=== PATIENT | female | born 1955 | race Caucasian/White ===

== ENCOUNTER 2024-02-06 09:45 | Inpatient (IN) | payer OTHER ==
[2024-02-06 10:33] VITALS: BMI 28.3
[2024-02-06 11:08] LABS: BASO % 0.6 % (0-2.0); EOS % 3.4 % (0-4.5); HEMATOCRIT 21.8 % (32.4-45.2); HEMOGLOBIN 7.3 GM/dL (10.7-15.3); LYMPH % 12.6 % (8-40); MCH 31.6 pg (25.7-33.7); MCHC 33.7 g/dl (32.0-36.0); MEAN CELL VOLUME 93.7 fl (80-96); MEAN PLT VOLUME 7.5 fl (7.5-11.1); MONO % 10.5 % (3.8-10.2); NEUT % 72.9 % (42.8-82.8); PLATELET COUNT 72 10^3/uL (134-434); RBC 2.32 M/mm3 (3.60-5.2); WHITE BLOOD COUNT 2.5 K/mm3 (4.0-10.0)
[2024-02-06 11:14] LABS: INR 1.13 (0.83-1.09)
[2024-02-06 11:28] LABS: ANISOCYTOSIS 1+; MACROCYTOSIS 1+
[2024-02-06 11:42] LABS: PH,URINE 5.5 (5.0-8.0); URINE APPEARANCE CLEAR; URINE BILIRUBIN NEGATIVE (NEGATIVE); URINE COLOR DK YELLOW; URINE GLUCOSE (UA) NEGATIVE (NEGATIVE); URINE KETONE TRACE (NEGATIVE); URINE LEUK ESTERASE TRACE (NEGATIVE); URINE NITRITE NEGATIVE (NEGATIVE); URINE PROTEIN 3+ (NEGATIVE); URINE RBC 1207.9 /uL (0-23.9); URINE UROBILINOGEN 0.2 mg/dL (0.2-1.0)
[2024-02-06 11:43] LABS: EPI CELLS 9.6 /uL (0-25.1); HYALINE CASTS 1.02 /uL (0-3.1); URINE BACTERIA 3.7 /uL (0-1359); URINE WBC 44.5 /uL (0-25.8)
[2024-02-06 11:54] LABS: LACTIC ACID 2.4 mmol/L (0.4-2.0)
[2024-02-06 13:30] LABS: POTASSIUM 3.9 mmol/L (3.5-5.1)
[2024-02-06 13:34] LABS: ALBUMIN 2.9 g/dl (3.4-5.0)
[2024-02-06 13:37] LABS: CREATININE 5.1 mg/dL (0.55-1.3)
[2024-02-06 13:38] LABS: BILIRUBIN,TOTAL 0.5 mg/dL (0.2-1); TOT PROT 5.9 g/dl (6.4-8.2)
[2024-02-06] MEDS ORDERED: LACTULOSE 20 GM/30 ML UDC (FOR ORAL USE ONLY) ONE (15:23)
[2024-02-06] MEDS: LACTULOSE 20 GM/30 ML UDC (FOR ORAL USE ONLY) PO ONE (15:38)
[2024-02-06 15:45] LABS: BF WBC & OTHER NUCLEATED CELLS 85 /mm3; BODY FLUID MACROPHAGES 62 %; BODY FLUID MESOTHELIAL 2 %
[2024-02-06] MEDS ORDERED: LACTULOSE 20 GM/30 ML UDC (FOR ORAL USE ONLY) PO PRN (18:15)
[2024-02-06] MEDS: BUDESONIDE/FORMETEROL FUMARATE 160/4.5 mcg INHALER IH SCH (22:11)
[2024-02-06] MEDS: OCTREOTIDE ACETATE 100 MCG/1 ML SQ SCH (22:12)
[2024-02-06] MEDS: RIFAXIMIN 550 MG TABLET PO SCH (22:47)
[2024-02-07] MEDS: ACETAMINOPHEN 500 MG TABLET (FP) PO ONE (04:47)
[2024-02-07] MEDS: LEVOTHYROXINE NA 100 MCG TABLET (FP) PO SCH (06:48)
[2024-02-07] MEDS: ACETAMINOPHEN 1000 MG/100 ML BAG IVPB ONE (06:52)
[2024-02-07 09:03] LABS: BASO % 0.6 % (0-2.0); EOS % 4.1 % (0-4.5); HEMATOCRIT 20.6 % (32.4-45.2); LYMPH % 14.9 % (8-40); MCH 31.2 pg (25.7-33.7); MCHC 32.9 g/dl (32.0-36.0); MEAN CELL VOLUME 94.9 fl (80-96); MEAN PLT VOLUME 7.9 fl (7.5-11.1); MONO % 10.6 % (3.8-10.2); NEUT % 69.8 % (42.8-82.8); PLATELET COUNT 73 10^3/uL (134-434); RBC 2.17 M/mm3 (3.60-5.2); RDW 24.2 % (11.6-15.6); WHITE BLOOD COUNT 2.4 K/mm3 (4.0-10.0)
[2024-02-07 09:20] LABS: CALCIUM 8.2 mg/dL (8.5-10.1)
[2024-02-07 09:21] LABS: ALBUMIN 2.7 g/dl (3.4-5.0); BLOOD UREA NITROGEN 46.6 mg/dL (7-18); HEMOGLOBIN 6.8 GM/dL (10.7-15.3); MAGNESIUM 2.4 mg/dL (1.8-2.4)
[2024-02-07 09:22] LABS: PHOSPHOROUS 4.5 mg/dL (2.5-4.9)
[2024-02-07 09:23] LABS: BILIRUBIN,TOTAL 0.9 mg/dL (0.2-1)
[2024-02-07 09:24] LABS: CREATININE 5.2 mg/dL (0.55-1.3); TOT PROT 5.4 g/dl (6.4-8.2)
[2024-02-07] MEDS: FOLIC ACID 1 MG TABLET (FP) PO SCH (09:50)
[2024-02-07] MEDS: CITALOPRAM HYDROBROMIDE 20 MG TABLET PO SCH (09:50)
[2024-02-07] MEDS: LACTULOSE 20 GM/30 ML UDC (FOR ORAL USE ONLY) PO PRN (09:50)
[2024-02-07] MEDS: THIAMINE 100 MG TABLET PO SCH (09:50)
[2024-02-07] MEDS: PANTOPRAZOLE 40 MG TABLET PO SCH (09:50)
[2024-02-07] MEDS ORDERED: SODIUM CHLORIDE 250 ML IV PRN (13:49)
[2024-02-07 13:52] LABS: BF WBC & OTHER NUCLEATED CELLS 79 /mm3
[2024-02-07] MEDS ORDERED: HYDROmorphone HCL 2 MG TABLET PO PRN (13:59)
[2024-02-07 14:15] LABS: RETICULOCYTES 3.03 % (0.5-1.5)
[2024-02-07] MEDS: HYDROmorphone HCL 2 MG TABLET PO PRN (14:28)
[2024-02-07 14:30] LABS: BODY FLUID MACROPHAGES 44 %; BODY FLUID MESOTHELIAL 3 %; BODY FLUID MONOCYTE 2 %
[2024-02-07] MEDS: LACTULOSE 20 GM/30 ML UDC (FOR ORAL USE ONLY) PO SCH (14:37)
[2024-02-07] MEDS: EPOETIN ALFA-EPBX 4,000 UNIT/ML VIAL SQ ONE (17:15)
[2024-02-08 08:08] LABS: BASO % 0.6 % (0-2.0); EOS % 4.2 % (0-4.5); HEMATOCRIT 27.4 % (32.4-45.2); HEMOGLOBIN 9.1 GM/dL (10.7-15.3); MCH 31.4 pg (25.7-33.7); MCHC 33.1 g/dl (32.0-36.0); MEAN PLT VOLUME 7.7 fl (7.5-11.1); MONO % 9.1 % (3.8-10.2); NEUT % 72.1 % (42.8-82.8); PLATELET COUNT 85 10^3/uL (134-434); RBC 2.89 M/mm3 (3.60-5.2); RDW 23.3 % (11.6-15.6); WHITE BLOOD COUNT 3.3 K/mm3 (4.0-10.0)
[2024-02-08 08:15] LABS: POTASSIUM 3.8 mmol/L (3.5-5.1)
[2024-02-08 08:33] LABS: CALCIUM 8.3 mg/dL (8.5-10.1)
[2024-02-08 08:34] LABS: ALBUMIN 2.7 g/dl (3.4-5.0)
[2024-02-08 08:37] LABS: CREATININE 3.3 mg/dL (0.55-1.3); PHOSPHOROUS 3.6 mg/dL (2.5-4.9)
[2024-02-08 08:38] LABS: BILIRUBIN,TOTAL 1.2 mg/dL (0.2-1); TOT PROT 5.8 g/dl (6.4-8.2)
[2024-02-08 08:40] LABS: BLOOD UREA NITROGEN 20.6 mg/dL (7-18)
[2024-02-08 10:33] VITALS: RESP 18
[2024-02-08] MEDS: LACTULOSE 20 GM/30 ML UDC (FOR ORAL USE ONLY) PO SCH (13:54)
[2024-02-08 14:12] LABS: BODY FLUID ALBUMIN 0.5 g/dL (Not Estab.)
[2024-02-08 15:14] LABS: BODY FLUID ALBUMIN 0.6 g/dL (Not Estab.)
[2024-02-08 18:18] VITALS: BP 140/66; PULSE 67; TEMP 98.8
== END 2024-02-08 20:45 | DRG 432 ==
LOC: JER 09:45 → JERBED 15:16 → J4W 18:19
PROVIDERS: ADMIT Internal Medicine; ATTEND Internal Medicine
PROC: 0W9G3ZX Drainage of Peritoneal Cavity, Percutaneous Approach, Diagnostic (ICD-10-PCS; principal; 2024-02-07)
PROC: 30233N1 Transfusion of Nonautologous Red Blood Cells into Peripheral Vein, Percutaneous Approach (ICD-10-PCS; 2024-02-07)
PROC: 5A1D70Z Performance of Urinary Filtration, Intermittent, Less than 6 Hours Per Day (ICD-10-PCS; 2024-02-07)
DX: K70.31 Alcoholic cirrhosis of liver with ascites (principal); N18.6 End stage renal disease; I85.00 Esophageal varices without bleeding; R41.82 Altered mental status, unspecified; J44.9 Chronic obstructive pulmonary disease, unspecified; E03.9 Hypothyroidism, unspecified; D64.9 Anemia, unspecified; G89.29 Other chronic pain; K76.82 Hepatic encephalopathy; D69.6 Thrombocytopenia, unspecified; Z99.2 Dependence on renal dialysis
CPT/HCPCS: 36415; 36430; 49083; 71045-TC-FY; 76705-TC; 76942-TC; 80053; 81003; 82042; 82140; 82150; 82465; 82550; 82607; 82945; 83605; 83615; 83735; 83986; 84100; 84157; 84478; 84484; 85025; 85045; 85610; 85730; 86704; 86803; 86850; 86900; 86901; 86922; 87070; 87075; 87086; 87102; 87116; 87205; 87206; 87210; 87340; 87517; 88108; 88305-TC; 93005; 93010; 99285-25; P9038; P9058; Q5106

== ENCOUNTER 2024-02-11 22:33 | Inpatient (IN) | payer OTHER ==
[2024-02-11 22:59] VITALS: BMI 23.3
[2024-02-11 23:48] LABS: BASO % 1.2 % (0-2.0); HEMATOCRIT 24.8 % (32.4-45.2); HEMOGLOBIN 8.3 GM/dL (10.7-15.3); MCH 31.6 pg (25.7-33.7); MCHC 33.4 g/dl (32.0-36.0); MEAN CELL VOLUME 94.8 fl (80-96); MEAN PLT VOLUME 7.4 fl (7.5-11.1); MONO % 9.9 % (3.8-10.2); NEUT % 70.9 % (42.8-82.8); PLATELET COUNT 82 10^3/uL (134-434); RBC 2.61 M/mm3 (3.60-5.2); RDW 23.4 % (11.6-15.6); WHITE BLOOD COUNT 2.8 K/mm3 (4.0-10.0)
[2024-02-11 23:51] LABS: ADD RBC MORPHOLOGY YES
[2024-02-11 23:54] LABS: INR 1.14 (0.83-1.09); PROTHROMBIN TIME (PATIENT) 13.1 SEC (9.7-13.0)
[2024-02-11 23:57] LABS: ACTIVATED PTT 31.3 SECONDS (25.2-36.5)
[2024-02-12 00:57] LABS: ALBUMIN 2.8 g/dl (3.4-5.0); CALCIUM 8.4 mg/dL (8.5-10.1)
[2024-02-12 00:58] LABS: BLOOD UREA NITROGEN 18.7 mg/dL (7-18); MAGNESIUM 2.1 mg/dL (1.8-2.4)
[2024-02-12 01:01] LABS: CREATININE 3.8 mg/dL (0.55-1.3)
[2024-02-12 01:02] LABS: TOT PROT 5.8 g/dl (6.4-8.2)
[2024-02-12 01:32] LABS: ANISOCYTOSIS 3+; MACROCYTOSIS 0
[2024-02-12] MEDS ORDERED: LACTULOSE 20 GM/30 ML UDC (FOR ORAL USE ONLY) ONE ×3 (01:45→21:20)
[2024-02-12] MEDS: LACTULOSE 20 GM/30 ML UDC (FOR ORAL USE ONLY) PO ONE (02:08)
[2024-02-12] MEDS ORDERED: LACTULOSE 20 GM/30 ML UDC (FOR ORAL USE ONLY) PO PRN (03:00)
[2024-02-12] MEDS ORDERED: MAGNESIUM HYDROX 2400MG/30ML ORAL SUSPENSION 30 ML CUP PO PRN (03:04)
[2024-02-12] MEDS ORDERED: HYDROmorphone HCL 2 MG TABLET PO PRN ×2 (03:04→05:45)
[2024-02-12] MEDS ORDERED: BISACODYL 10 MG SUPP.RECT RC PRN (03:04)
[2024-02-12] MEDS ORDERED: ACETAMINOPHEN 325 MG TABLET (FP) PO PRN (03:04)
[2024-02-12] MEDS: [UNRECOGNIZED DRUG - OTHER] IJ SCH (03:28)
[2024-02-12] MEDS: OCTREOTIDE ACETATE IJ SCH (03:28)
[2024-02-12 04:04] LABS: VENOUS BASE EXCESS 3.2 mmol/L (-2-2); VENOUS O2 SATURATION 76.1 % (70-80); VENOUS PCO2 47.1 mmHg (38-52); VENOUS PH 7.404 (7.310-7.410)
[2024-02-12 06:09] LABS: PH,URINE 6.5 (5.0-8.0); URINE APPEARANCE TURBID; URINE BILIRUBIN 1+ (NEGATIVE); URINE COLOR DK YELLOW; URINE GLUCOSE (UA) NEGATIVE (NEGATIVE); URINE KETONE TRACE (NEGATIVE); URINE LEUK ESTERASE 3+ (NEGATIVE); URINE NITRITE NEGATIVE (NEGATIVE); URINE PROTEIN 3+ (NEGATIVE)
[2024-02-12] MEDS ORDERED: OCTREOTIDE ACETATE 100 MCG/1 ML ONE ×3 (06:31→21:33)
[2024-02-12] MEDS: OCTREOTIDE ACETATE 100 MCG/1 ML SQ SCH (06:43)
[2024-02-12] MEDS: LACTULOSE 20 GM/30 ML UDC (FOR ORAL USE ONLY) PO SCH ×2 (06:43→10:45)
[2024-02-12] MEDS ORDERED: PANTOPRAZOLE 40 MG TABLET PO ONE (07:31)
[2024-02-12] MEDS ORDERED: LEVOTHYROXINE NA 100 MCG TABLET (FP) ONE (07:31)
[2024-02-12] MEDS: CALCIUM ACETATE 667 MG CAPSULE (FP) PO SCH (07:41)
[2024-02-12] MEDS: PANTOPRAZOLE 40 MG TABLET PO SCH (07:41)
[2024-02-12] MEDS: LEVOTHYROXINE NA 100 MCG TABLET (FP) PO SCH (07:41)
[2024-02-12 08:16] LABS: HEMATOCRIT 23.4 % (32.4-45.2); HEMOGLOBIN 7.8 GM/dL (10.7-15.3); MCHC 33.2 g/dl (32.0-36.0); MEAN CELL VOLUME 96.6 fl (80-96); MEAN PLT VOLUME 7.9 fl (7.5-11.1); PLATELET COUNT 68 10^3/uL (134-434); RBC 2.43 M/mm3 (3.60-5.2); RDW 23.6 % (11.6-15.6); WHITE BLOOD COUNT 2.6 K/mm3 (4.0-10.0)
[2024-02-12 08:26] LABS: POTASSIUM 3.6 mmol/L (3.5-5.1)
[2024-02-12 08:28] LABS: ALBUMIN 2.5 g/dl (3.4-5.0); BLOOD UREA NITROGEN 17.7 mg/dL (7-18); CALCIUM 7.5 mg/dL (8.5-10.1); MAGNESIUM 1.9 mg/dL (1.8-2.4)
[2024-02-12 08:31] LABS: PHOSPHOROUS 3.9 mg/dL (2.5-4.9)
[2024-02-12 08:33] LABS: CREATININE 4.2 mg/dL (0.55-1.3)
[2024-02-12 08:34] LABS: TOT PROT 5.3 g/dl (6.4-8.2)
[2024-02-12] MEDS ORDERED: LIDOCAINE 4% PATCH TP ONE (09:09)
[2024-02-12] MEDS: LIDOCAINE 4% PATCH TP SCH (09:22)
[2024-02-12] MEDS: CITALOPRAM HYDROBROMIDE 20 MG TABLET PO SCH (09:22)
[2024-02-12] MEDS: FERROUS SO4 325 MG TABLET (FP) PO SCH (09:23)
[2024-02-12] MEDS: THIAMINE 100 MG TABLET PO SCH (09:23)
[2024-02-12] MEDS: RIFAXIMIN 550 MG TABLET PO SCH (09:23)
[2024-02-12] MEDS: FOLIC ACID 1 MG TABLET (FP) PO SCH (09:23)
[2024-02-12 09:33] LABS: N-TERMINAL BNP 1907.9 pg/ml (5-125)
[2024-02-12] MEDS ORDERED: SEVELAMER CARBONATE 0.8 GM POWDER PACKET PO SCH (10:00)
[2024-02-12] MEDS: BUDESONIDE/FORMETEROL FUMARATE 160/4.5 mcg INHALER IH SCH (12:00)
[2024-02-12 12:14] LABS: EPI CELLS QNS /uL (0-25.1); HYALINE CASTS QNS /uL (0-3.1); URINE BACTERIA QNS /uL (0-1359); URINE RBC QNS /uL (0-23.9); URINE WBC QNS /uL (0-25.8)
[2024-02-12] MEDS ORDERED: SODIUM CHLORIDE 250 ML IV PRN (21:06)
[2024-02-12] MEDS: LIDOCAINE PATCH REMOVAL MC SCH (21:46)
[2024-02-12] MEDS: PRAMIPEXOLE DIHYDROCHLORIDE 1 MG TABLET PO SCH (22:52)
[2024-02-13 08:53] LABS: BASO % 0.8 % (0-2.0); EOS % 3.7 % (0-4.5); HEMATOCRIT 25.5 % (32.4-45.2); HEMOGLOBIN 8.5 GM/dL (10.7-15.3); LYMPH % 16.4 % (8-40); MCH 32.1 pg (25.7-33.7); MCHC 33.3 g/dl (32.0-36.0); MEAN CELL VOLUME 96.4 fl (80-96); MEAN PLT VOLUME 8.1 fl (7.5-11.1); MONO % 10.1 % (3.8-10.2); PLATELET COUNT 83 10^3/uL (134-434); RBC 2.64 M/mm3 (3.60-5.2); RDW 22.4 % (11.6-15.6); WHITE BLOOD COUNT 2.6 K/mm3 (4.0-10.0)
[2024-02-13 08:54] LABS: INR 1.13 (0.83-1.09)
[2024-02-13 09:12] LABS: POTASSIUM 4.1 mmol/L (3.5-5.1)
[2024-02-13 09:16] LABS: BLOOD UREA NITROGEN 28.3 mg/dL (7-18); CALCIUM 8.6 mg/dL (8.5-10.1)
[2024-02-13 09:19] LABS: CREATININE 5.2 mg/dL (0.55-1.3)
[2024-02-13 09:21] LABS: BILIRUBIN,TOTAL 0.9 mg/dL (0.2-1); TOT PROT 6.3 g/dl (6.4-8.2)
[2024-02-13] MEDS: EPOETIN ALFA-EPBX 4,000 UNIT/ML VIAL IVPUSH ONE (10:18)
[2024-02-13] MEDS: CEFTRIAXONE 1 GM in DEXTROSE 5%-WATER - 50 ML IVPB SCH (12:42)
[2024-02-14 09:51] LABS: INR 1.17 (0.83-1.09); PROTHROMBIN TIME (PATIENT) 13.2 SEC (9.7-13.0)
[2024-02-14 10:03] LABS: BASO % 0.9 % (0-2.0); EOS % 4.1 % (0-4.5); HEMATOCRIT 24.6 % (32.4-45.2); HEMOGLOBIN 8.2 GM/dL (10.7-15.3); LYMPH % 13.6 % (8-40); MCH 32.4 pg (25.7-33.7); MCHC 33.2 g/dl (32.0-36.0); MEAN CELL VOLUME 97.7 fl (80-96); MEAN PLT VOLUME 8.1 fl (7.5-11.1); MONO % 10.4 % (3.8-10.2); PLATELET COUNT 80 10^3/uL (134-434); RBC 2.52 M/mm3 (3.60-5.2); RDW 22.5 % (11.6-15.6)
[2024-02-14 10:05] LABS: POTASSIUM 4.3 mmol/L (3.5-5.1)
[2024-02-14 10:08] LABS: CALCIUM 8.7 mg/dL (8.5-10.1)
[2024-02-14 10:09] LABS: ALBUMIN 2.8 g/dl (3.4-5.0); BLOOD UREA NITROGEN 15.6 mg/dL (7-18)
[2024-02-14 10:12] LABS: CREATININE 3.8 mg/dL (0.55-1.3)
[2024-02-14 10:13] LABS: BILIRUBIN,TOTAL 0.7 mg/dL (0.2-1)
[2024-02-14] MEDS: MEROPENEM 500 MG PUSH 500 MG/10 ML DISP.SYRIN IVPUSH SCH (16:34)
[2024-02-14 18:11] LABS: BF WBC & OTHER NUCLEATED CELLS 140 /mm3
[2024-02-14 18:18] LABS: BODY FLUID MACROPHAGES 67 %
[2024-02-14 18:20] LABS: BODY FLUID MONOCYTE 8 %
[2024-02-15 09:14] LABS: BASO % 0.5 % (0-2.0); EOS % 4.8 % (0-4.5); HEMATOCRIT 25.2 % (32.4-45.2); HEMOGLOBIN 8.4 GM/dL (10.7-15.3); LYMPH % 7.2 % (8-40); MCH 32.4 pg (25.7-33.7); MCHC 33.1 g/dl (32.0-36.0); MONO % 9.9 % (3.8-10.2); NEUT % 77.6 % (42.8-82.8); PLATELET COUNT 86 10^3/uL (134-434); RBC 2.58 M/mm3 (3.60-5.2); RDW 22.4 % (11.6-15.6); WHITE BLOOD COUNT 3.5 K/mm3 (4.0-10.0)
[2024-02-15 09:15] LABS: INR 1.18 (0.83-1.09); PROTHROMBIN TIME (PATIENT) 13.5 SEC (9.7-13.0)
[2024-02-15 09:36] LABS: POTASSIUM 3.9 mmol/L (3.5-5.1)
[2024-02-15 09:41] LABS: ALBUMIN 2.8 g/dl (3.4-5.0); BLOOD UREA NITROGEN 27.3 mg/dL (7-18); CALCIUM 8.1 mg/dL (8.5-10.1)
[2024-02-15 09:44] LABS: CREATININE 4.6 mg/dL (0.55-1.3)
[2024-02-15 09:46] LABS: BILIRUBIN,TOTAL 0.6 mg/dL (0.2-1)
[2024-02-15] MEDS ORDERED: SODIUM CHLORIDE 250 ML IV PRN (11:00)
[2024-02-15] MEDS: EPOETIN ALFA-EPBX 4,000 UNIT/ML VIAL IVPUSH ONE (11:52)
[2024-02-16 10:43] VITALS: RESP 18
[2024-02-16 13:22] VITALS: BP 126/56; PULSE 75; TEMP 98.4
[2024-02-18 13:08] LABS: BODY FLUID ALBUMIN 0.6 g/dL (Not Estab.)
== END 2024-02-16 16:02 | DRG 441 ==
LOC: JER 22:33 → JERBED 02-12 01:29 → J7W 02-13 00:17
PROVIDERS: ADMIT Internal Medicine; ATTEND Nurse Practitioner
PROC: 0W9G3ZZ Drainage of Peritoneal Cavity, Percutaneous Approach (ICD-10-PCS; 2024-02-12)
PROC: 0W9G3ZZ Drainage of Peritoneal Cavity, Percutaneous Approach (ICD-10-PCS; 2024-02-14)
PROC: 5A1D70Z Performance of Urinary Filtration, Intermittent, Less than 6 Hours Per Day (ICD-10-PCS; principal; 2024-02-15)
DX: K76.82 Hepatic encephalopathy (principal); N18.6 End stage renal disease; D61.818 Other pancytopenia; I85.10 Secondary esophageal varices without bleeding; N39.0 Urinary tract infection, site not specified; Z16.12 Extended spectrum beta lactamase (ESBL) resistance; K70.31 Alcoholic cirrhosis of liver with ascites; J44.9 Chronic obstructive pulmonary disease, unspecified; Z99.2 Dependence on renal dialysis
CPT/HCPCS: 0241U-QW; 36415; 70450-TC; 71045-TC-FY; 76700-TC; 76942-TC; 80053; 81003; 82042; 82140; 82150; 82465; 82803; 82945; 83615; 83735; 83880; 83986; 84100; 84157; 84439; 84443; 84478; 84479; 84481; 85025; 85027; 85610; 85730; 86850; 86900; 86901; 87070; 87075; 87086; 87102; 87116; 87186; 87205; 87206; 87210; 88108; 88305-TC; 93005; 93010; 99285-25; Q5106

== ENCOUNTER 2024-02-24 17:27 | Emergency (ER) | payer OTHER ==
[2024-02-24 17:47] VITALS: RESP 18; BMI 20.7
[2024-02-24 19:19] LABS: BASO % 0.9 % (0-2.0); EOS % 4.1 % (0-4.5); HEMATOCRIT 18.8 % (32.4-45.2); LYMPH % 13.1 % (8-40); MCH 33.3 pg (25.7-33.7); MCHC 33.1 g/dl (32.0-36.0); MEAN CELL VOLUME 100.7 fl (80-96); MEAN PLT VOLUME 8.3 fl (7.5-11.1); NEUT % 73.9 % (42.8-82.8); PLATELET COUNT 97 10^3/uL (134-434); RBC 1.87 M/mm3 (3.60-5.2); RDW 20.8 % (11.6-15.6); WHITE BLOOD COUNT 3.2 K/mm3 (4.0-10.0)
[2024-02-24 19:29] LABS: HEMOGLOBIN 6.2 GM/dL (10.7-15.3)
[2024-02-24 19:31] LABS: INR 1.15 (0.83-1.09); PROTHROMBIN TIME (PATIENT) 12.9 SEC (9.7-13.0)
[2024-02-24 19:34] LABS: ACTIVATED PTT 32.3 SECONDS (25.2-36.5)
[2024-02-24 19:37] LABS: POTASSIUM 4.2 mmol/L (3.5-5.1)
[2024-02-24 19:39] LABS: CALCIUM 7.9 mg/dL (8.5-10.1)
[2024-02-24 19:40] LABS: ALBUMIN 2.8 g/dl (3.4-5.0); BLOOD UREA NITROGEN 27.8 mg/dL (7-18)
[2024-02-24 19:43] LABS: CREATININE 4.8 mg/dL (0.55-1.3)
[2024-02-24 19:44] LABS: BILIRUBIN,TOTAL 0.4 mg/dL (0.2-1); TOT PROT 5.8 g/dl (6.4-8.2)
[2024-02-24] MEDS ORDERED: GABAPENTIN 300 MG CAPSULE ONE (21:49)
[2024-02-24] MEDS: GABAPENTIN 300 MG CAPSULE PO ONE (21:59)
[2024-02-24 23:36] VITALS: BP 152/58; PULSE 71; TEMP 99
== END 2024-02-25 04:38 | disposition home or self-care (01) ==
LOC: JER 17:27
DX: D64.9 Anemia, unspecified (principal)
CPT/HCPCS: 36415; 36430; 80053; 82140; 85025; 85610; 85730; 86850; 86900; 86901; 86922; 93005; 93010; 99284-25; P9058

== ENCOUNTER 2024-03-02 04:03 | Inpatient (IN) | payer OTHER, MEDICARE ==
[2024-03-02 04:36] VITALS: BMI 25.4
[2024-03-02 05:22] LABS: BASO % 1.2 % (0-2.0); EOS % 5.5 % (0-4.5); HEMATOCRIT 17.2 % (32.4-45.2); LYMPH % 16.5 % (8-40); MCH 33.6 pg (25.7-33.7); MCHC 32.9 g/dl (32.0-36.0); MEAN CELL VOLUME 101.9 fl (80-96); MEAN PLT VOLUME 8.7 fl (7.5-11.1); MONO % 9.7 % (3.8-10.2); NEUT % 67.1 % (42.8-82.8); PLATELET COUNT 96 10^3/uL (134-434); RBC 1.69 M/mm3 (3.60-5.2); RDW 21.6 % (11.6-15.6); WHITE BLOOD COUNT 2.4 K/mm3 (4.0-10.0)
[2024-03-02 05:51] LABS: POTASSIUM 4.8 mmol/L (3.5-5.1)
[2024-03-02 05:53] LABS: ALBUMIN 2.5 g/dl (3.4-5.0); BLOOD UREA NITROGEN 23.6 mg/dL (7-18); CALCIUM 7.9 mg/dL (8.5-10.1); MAGNESIUM 2.6 mg/dL (1.8-2.4)
[2024-03-02 05:57] LABS: PHOSPHOROUS 4.9 mg/dL (2.5-4.9)
[2024-03-02 05:58] LABS: BILIRUBIN,TOTAL 0.5 mg/dL (0.2-1); TOT PROT 5.4 g/dl (6.4-8.2)
[2024-03-02 07:04] LABS: ANISOCYTOSIS 2+
[2024-03-02] MEDS ORDERED: ARTIFICIAL TEARS OPHTHALMIC DROPS OU PRN (12:55)
[2024-03-02] MEDS ORDERED: BISACODYL 10 MG SUPP.RECT RC PRN (12:55)
[2024-03-02] MEDS ORDERED: MAGNESIUM HYDROX 2400MG/30ML ORAL SUSPENSION 30 ML CUP PO PRN (12:55)
[2024-03-02] MEDS ORDERED: SODIUM PHOSPHATE/NA BIPHOS 133 ML ENEMA RC PRN (12:55)
[2024-03-02] MEDS ORDERED: NALOXONE HCL 4 MG NS PRN (12:55)
[2024-03-02] MEDS ORDERED: NALOXONE HCL 0.4 MG/ML VIAL IVPUSH PRN (14:17)
[2024-03-02] MEDS ORDERED: LACTULOSE 20 GM/30 ML UDC (FOR ORAL USE ONLY) ONE ×3 (14:37→22:06)
[2024-03-02] MEDS: LACTULOSE 20 GM/30 ML UDC (FOR ORAL USE ONLY) PO SCH (14:47)
[2024-03-02] MEDS ORDERED: LORazepam 0.5 MG TABLET ONE (15:34)
[2024-03-02] MEDS: LORazepam 0.5 MG TABLET PO ONE (15:35)
[2024-03-02] MEDS ORDERED: OCTREOTIDE ACETATE 100 MCG/1 ML ONE (16:21)
[2024-03-02 17:28] LABS: BASO % 0.9 % (0-2.0); EOS % 5.5 % (0-4.5); HEMATOCRIT 21.7 % (32.4-45.2); HEMOGLOBIN 7.2 GM/dL (10.7-15.3); LYMPH % 12.6 % (8-40); MCH 31.3 pg (25.7-33.7); MCHC 33.3 g/dl (32.0-36.0); MEAN CELL VOLUME 94.1 fl (80-96); MEAN PLT VOLUME 7.4 fl (7.5-11.1); MONO % 8.6 % (3.8-10.2); NEUT % 72.4 % (42.8-82.8); PLATELET COUNT 92 10^3/uL (134-434); WHITE BLOOD COUNT 3.5 K/mm3 (4.0-10.0)
[2024-03-02 17:44] LABS: ADD RBC MORPHOLOGY YES
[2024-03-02] MEDS: SEVELAMER CARBONATE 0.8 GM POWDER PACKET PO SCH (18:26)
[2024-03-02] MEDS: OCTREOTIDE ACETATE 100 MCG/1 ML SQ SCH (18:27)
[2024-03-02] MEDS: PRAMIPEXOLE DIHYDROCHLORIDE 1 MG TABLET PO SCH (22:12)
[2024-03-02] MEDS: RIFAXIMIN 550 MG TABLET PO SCH (22:12)
[2024-03-02] MEDS: BUDESONIDE/FORMETEROL FUMARATE 160/4.5 mcg INHALER IH SCH (22:56)
[2024-03-03] MEDS ORDERED: OCTREOTIDE ACETATE 100 MCG/1 ML ONE (02:19)
[2024-03-03] MEDS: HYDROmorphone HCL 2 MG TABLET PO PRN (04:25)
[2024-03-03 06:36] LABS: INR 1.16 (0.83-1.09); PROTHROMBIN TIME (PATIENT) 13.3 SEC (9.7-13.0)
[2024-03-03 06:39] LABS: EOS % 3.8 % (0-4.5); HEMATOCRIT 19.2 % (32.4-45.2); LYMPH % 13.7 % (8-40); MCH 31.7 pg (25.7-33.7); MEAN CELL VOLUME 96.2 fl (80-96); MONO % 7.7 % (3.8-10.2); NEUT % 73.8 % (42.8-82.8); PLATELET COUNT 82 10^3/uL (134-434); RDW 24.9 % (11.6-15.6); WHITE BLOOD COUNT 2.4 K/mm3 (4.0-10.0)
[2024-03-03 06:40] LABS: POTASSIUM 4.7 mmol/L (3.5-5.1)
[2024-03-03 06:42] LABS: CALCIUM 7.7 mg/dL (8.5-10.1)
[2024-03-03 06:43] LABS: ALBUMIN 2.3 g/dl (3.4-5.0); BLOOD UREA NITROGEN 33.6 mg/dL (7-18); MAGNESIUM 2.7 mg/dL (1.8-2.4)
[2024-03-03 06:46] LABS: CREATININE 5.6 mg/dL (0.55-1.3); PHOSPHOROUS 6.1 mg/dL (2.5-4.9)
[2024-03-03 06:48] LABS: TOT PROT 4.7 g/dl (6.4-8.2)
[2024-03-03 07:13] LABS: HEMOGLOBIN 6.3 GM/dL (10.7-15.3)
[2024-03-03] MEDS ORDERED: LEVOTHYROXINE NA 100 MCG TABLET (FP) ONE (07:34)
[2024-03-03] MEDS: LEVOTHYROXINE NA 100 MCG TABLET (FP) PO SCH (07:41)
[2024-03-03] MEDS ORDERED: SEVELAMER CARBONATE 0.8 GM POWDER PACKET PO SCH (10:00)
[2024-03-03] MEDS ORDERED: PANTOPRAZOLE 40 MG TABLET PO SCH (10:00)
[2024-03-03] MEDS ORDERED: CITALOPRAM HYDROBROMIDE 10 MG TABLET ONE (10:34)
[2024-03-03] MEDS ORDERED: THIAMINE HCL 200 MG/2 ML VIAL ONE (10:34)
[2024-03-03] MEDS ORDERED: MULTIVITAMINS (DAILY MVI) TABLET (FP) ONE (10:34)
[2024-03-03] MEDS ORDERED: FERROUS SO4 325 MG TABLET (FP) ONE (10:34)
[2024-03-03] MEDS ORDERED: CEFEPIME 1 GM/100 ML BAG IVPB ONE (10:35)
[2024-03-03] MEDS ORDERED: SODIUM CHLORIDE 250 ML IV PRN (10:48)
[2024-03-03] MEDS: FERROUS SO4 325 MG TABLET (FP) PO SCH (11:55)
[2024-03-03] MEDS: CEFTRIAXONE 1 G/50 ML PREMIX 50 ML IVPB SCH (11:55)
[2024-03-03] MEDS: CITALOPRAM HYDROBROMIDE 20 MG TABLET PO SCH (11:55)
[2024-03-03] MEDS: MULTIVITAMINS (DAILY MVI) TABLET (FP) PO SCH (11:56)
[2024-03-03] MEDS: FOLIC ACID 1 MG TABLET (FP) PO SCH (11:56)
[2024-03-03] MEDS: THIAMINE 100 MG TABLET PO SCH (11:56)
[2024-03-03] MEDS: OCTREOTIDE ACETATE 200 MCG, OCTREOTIDE ACETATE 1,000 MCG in DEXTROSE 5%-WATER - 496 ML IVPB SCH (12:15)
[2024-03-03] MEDS: PANTOPRAZOLE SODIUM 160 MG in SODIUM CHLORIDE 250 ML IVPB SCH (12:37)
[2024-03-03] MEDS: IRON SUCROSE INJECTION 200 MG in SODIUM CHLORIDE 100 ML IVPB SCH (12:37)
[2024-03-03] MEDS ORDERED: IRON SUCROSE COMPLEX IV SCH (13:00)
[2024-03-03] MEDS ORDERED: [UNRECOGNIZED DRUG - OTHER] IV SCH (13:00)
[2024-03-03 13:45] LABS: BF WBC & OTHER NUCLEATED CELLS 94 /mm3
[2024-03-03 13:58] LABS: BODY FLUID MONOCYTE 67 %
[2024-03-03 13:59] LABS: BODY FLUID MESOTHELIAL 5 %
[2024-03-03] MEDS: LACTULOSE 20 GM/30 ML UDC (FOR ORAL USE ONLY) PO SCH (15:04)
[2024-03-03] MEDS: EPOETIN ALFA-EPBX 10,000 UNIT/ML VIAL SQ ONE (16:11)
[2024-03-03] MEDS: GABAPENTIN 100 MG CAPSULE PO ONE (21:10)
[2024-03-03 21:33] LABS: HEMATOCRIT 24.4 % (32.4-45.2); HEMOGLOBIN 8.2 GM/dL (10.7-15.3); MCH 30.8 pg (25.7-33.7); MCHC 33.4 g/dl (32.0-36.0); MEAN CELL VOLUME 92.2 fl (80-96); MEAN PLT VOLUME 7.3 fl (7.5-11.1); PLATELET COUNT 80 10^3/uL (134-434); RBC 2.65 M/mm3 (3.60-5.2); RDW 22.6 % (11.6-15.6); WHITE BLOOD COUNT 3.4 K/mm3 (4.0-10.0)
[2024-03-04 07:46] LABS: BASO % 0.7 % (0-2.0); EOS % 2.2 % (0-4.5); HEMATOCRIT 24.6 % (32.4-45.2); HEMOGLOBIN 8.1 GM/dL (10.7-15.3); LYMPH % 6.8 % (8-40); MCH 31.2 pg (25.7-33.7); MCHC 32.8 g/dl (32.0-36.0); MEAN CELL VOLUME 95.1 fl (80-96); MEAN PLT VOLUME 7.8 fl (7.5-11.1); MONO % 7.1 % (3.8-10.2); NEUT % 83.2 % (42.8-82.8); PLATELET COUNT 80 10^3/uL (134-434); RBC 2.58 M/mm3 (3.60-5.2); WHITE BLOOD COUNT 3.3 K/mm3 (4.0-10.0)
[2024-03-04 07:52] LABS: INR 1.2 (0.83-1.09); PROTHROMBIN TIME (PATIENT) 13.5 SEC (9.7-13.0)
[2024-03-04 07:55] LABS: POTASSIUM 4.3 mmol/L (3.5-5.1)
[2024-03-04 07:58] LABS: CALCIUM 8.3 mg/dL (8.5-10.1)
[2024-03-04 07:59] LABS: ALBUMIN 2.6 g/dl (3.4-5.0); BLOOD UREA NITROGEN 23.7 mg/dL (7-18)
[2024-03-04 08:02] LABS: CREATININE 3.8 mg/dL (0.55-1.3)
[2024-03-04 08:04] LABS: BILIRUBIN,TOTAL 1.6 mg/dL (0.2-1); TOT PROT 5.5 g/dl (6.4-8.2)
[2024-03-04 10:21] LABS: HEMOGLOBIN 5.7 GM/dL (10.7-15.3)
[2024-03-04] MEDS: IRON SUCROSE INJECTION 200 MG in SODIUM CHLORIDE 100 ML IVPB ONE (13:48)
[2024-03-04 15:12] LABS: BODY FLUID ALBUMIN 0.5 g/dL (Not Estab.)
[2024-03-04] MEDS ORDERED: SODIUM CHLORIDE 250 ML IV PRN (16:01)
[2024-03-04] MEDS: PANTOPRAZOLE 40 MG TABLET PO SCH (21:42)
[2024-03-05] MEDS: EPOETIN ALFA-EPBX 10,000 UNIT/ML VIAL SQ ONE (11:21)
[2024-03-05] MEDS: ACETAMINOPHEN 325 MG TABLET (FP) PO PRN (13:42)
[2024-03-05 17:18] VITALS: BP 114/56; PULSE 72; RESP 18; TEMP 98.5
== END 2024-03-05 17:22 | DRG 811 ==
LOC: JER 04:03 → JERBED 10:04 → OBSVTOIN 13:41 → J7W 03-03 13:21
PROVIDERS: ADMIT Internal Medicine; ATTEND Internal Medicine
PROC: 30233N1 Transfusion of Nonautologous Red Blood Cells into Peripheral Vein, Percutaneous Approach (ICD-10-PCS; 2024-03-02)
PROC: 0W9G3ZX Drainage of Peritoneal Cavity, Percutaneous Approach, Diagnostic (ICD-10-PCS; principal; 2024-03-03)
PROC: 0D568ZZ Destruction of Stomach, Via Natural or Artificial Opening Endoscopic (ICD-10-PCS; 2024-03-04)
PROC: 5A1D70Z Performance of Urinary Filtration, Intermittent, Less than 6 Hours Per Day (ICD-10-PCS; 2024-03-05)
DX: D62 Acute posthemorrhagic anemia (principal); N18.6 End stage renal disease; K72.90 Hepatic failure, unspecified without coma; D61.818 Other pancytopenia; F41.9 Anxiety disorder, unspecified; E03.9 Hypothyroidism, unspecified; K70.31 Alcoholic cirrhosis of liver with ascites; J44.9 Chronic obstructive pulmonary disease, unspecified; Z99.2 Dependence on renal dialysis
CPT/HCPCS: 36415; 36430; 76942-TC; 80053; 82042; 82150; 82272; 82465; 82945; 83615; 83735; 83986; 84100; 84157; 84478; 85025; 85027; 85610; 86850; 86900; 86901; 86922; 87070; 87075; 87102; 87116; 87205; 87206; 87210; 88108; 88305-TC; 93005; 93010; 99285-25; G0378; J1756; P9058; Q5106

== ENCOUNTER 2024-03-24 02:47 | Inpatient (IN) | payer OTHER, MEDICARE ==
[2024-03-24 04:50] LABS: BASO % 0.7 % (0-2.0); EOS % 3.2 % (0-4.5); HEMATOCRIT 20.6 % (32.4-45.2); LYMPH % 11.1 % (8-40); MCH 33.6 pg (25.7-33.7); MCHC 32.2 g/dl (32.0-36.0); MEAN CELL VOLUME 104.3 fl (80-96); MEAN PLT VOLUME 8.2 fl (7.5-11.1); MONO % 8.9 % (3.8-10.2); NEUT % 76.1 % (42.8-82.8); PLATELET COUNT 90 10^3/uL (134-434); RBC 1.97 M/mm3 (3.60-5.2); RDW 21.1 % (11.6-15.6); WHITE BLOOD COUNT 3.6 K/mm3 (4.0-10.0)
[2024-03-24 04:54] LABS: HEMOGLOBIN 6.6 GM/dL (10.7-15.3)
[2024-03-24 05:09] LABS: POTASSIUM 3.9 mmol/L (3.5-5.1)
[2024-03-24 05:11] LABS: CALCIUM 7.9 mg/dL (8.5-10.1)
[2024-03-24 05:12] LABS: ALBUMIN 2.6 g/dl (3.4-5.0); BLOOD UREA NITROGEN 32.7 mg/dL (7-18); MAGNESIUM 2.8 mg/dL (1.8-2.4)
[2024-03-24 05:15] LABS: CREATININE 5.3 mg/dL (0.55-1.3); PHOSPHOROUS 3.9 mg/dL (2.5-4.9)
[2024-03-24 05:16] LABS: BILIRUBIN,TOTAL 0.4 mg/dL (0.2-1)
[2024-03-24 05:17] LABS: TOT PROT 5.6 g/dl (6.4-8.2)
[2024-03-24 09:40] LABS: ANISOCYTOSIS 2+; MACROCYTOSIS 1+
[2024-03-24] MEDS: PANTOPRAZOLE 40 MG TABLET PO SCH ×2 (10:37→22:20)
[2024-03-24] MEDS ORDERED: SODIUM CHLORIDE 250 ML IV PRN (10:51)
[2024-03-24] MEDS ORDERED: MAGNESIUM HYDROX 2400MG/30ML ORAL SUSPENSION 30 ML CUP PO PRN (12:57)
[2024-03-24] MEDS ORDERED: HYDROmorphone HCL 2 MG TABLET PO PRN (12:57)
[2024-03-24] MEDS ORDERED: NALOXONE HCL 4 MG NS PRN (12:57)
[2024-03-24 13:31] LABS: HEMATOCRIT 23.2 % (32.4-45.2); HEMOGLOBIN 7.3 GM/dL (10.7-15.3); MCH 32.7 pg (25.7-33.7); MCHC 31.6 g/dl (32.0-36.0); MEAN CELL VOLUME 103.6 fl (80-96); MEAN PLT VOLUME 7.8 fl (7.5-11.1); PLATELET COUNT 95 10^3/uL (134-434); RBC 2.24 M/mm3 (3.60-5.2); RDW 21.5 % (11.6-15.6); WHITE BLOOD COUNT 3.6 K/mm3 (4.0-10.0)
[2024-03-24] MEDS: LACTULOSE 20 GM/30 ML UDC (FOR ORAL USE ONLY) PO SCH (17:17)
[2024-03-24] MEDS: LEVOTHYROXINE NA 100 MCG TABLET (FP) PO SCH (17:19)
[2024-03-24] MEDS: HEPARIN NA (PORCINE) 5,000 UNITS/ML 1ML VIAL SQ SCH (17:19)
[2024-03-24] MEDS: MULTIVITAMINS (DAILY MVI) TABLET (FP) PO SCH (17:19)
[2024-03-24] MEDS: CITALOPRAM HYDROBROMIDE 20 MG TABLET PO SCH (17:19)
[2024-03-24] MEDS: OCTREOTIDE ACETATE 100 MCG/1 ML SQ SCH (22:20)
[2024-03-24] MEDS: RIFAXIMIN 550 MG TABLET PO SCH (22:20)
[2024-03-24] MEDS: BUDESONIDE/FORMETEROL FUMARATE 80/4.5 mcg INHALER IH SCH (22:22)
[2024-03-24] MEDS: ACETAMINOPHEN 325 MG TABLET (FP) PO PRN (22:22)
[2024-03-25] MEDS: PRAMIPEXOLE DIHYDROCHLORIDE 1 MG TABLET PO SCH (01:29)
[2024-03-25 08:52] LABS: HEMATOCRIT 21.9 % (32.4-45.2); HEMOGLOBIN 7.2 GM/dL (10.7-15.3); MCH 33.2 pg (25.7-33.7); MCHC 32.9 g/dl (32.0-36.0); MEAN CELL VOLUME 100.7 fl (80-96); PLATELET COUNT 76 10^3/uL (134-434); RBC 2.17 M/mm3 (3.60-5.2); RDW 21.1 % (11.6-15.6); WHITE BLOOD COUNT 2.6 K/mm3 (4.0-10.0)
[2024-03-25 08:59] LABS: POTASSIUM 3.5 mmol/L (3.5-5.1)
[2024-03-25 09:07] LABS: CALCIUM 7.7 mg/dL (8.5-10.1)
[2024-03-25 09:08] LABS: ALBUMIN 2.4 g/dl (3.4-5.0); BLOOD UREA NITROGEN 18.9 mg/dL (7-18)
[2024-03-25 09:11] LABS: PHOSPHOROUS 3.4 mg/dL (2.5-4.9)
[2024-03-25 09:12] LABS: BILIRUBIN,TOTAL 1.1 mg/dL (0.2-1); CREATININE 3.7 mg/dL (0.55-1.3)
[2024-03-25 09:14] LABS: TOT PROT 5.1 g/dl (6.4-8.2)
[2024-03-25] MEDS: MIDODRINE HCL 5 MG TABLET PO ONE (09:44)
[2024-03-25] MEDS: FERROUS SO4 325 MG TABLET (FP) PO SCH (09:59)
[2024-03-25] MEDS: THIAMINE 100 MG TABLET PO SCH (09:59)
[2024-03-25] MEDS: MIDODRINE HCL 2.5 MG TABLET PO SCH (10:00)
[2024-03-25] MEDS: FOLIC ACID 1 MG TABLET (FP) PO SCH (10:48)
[2024-03-25] MEDS: ALBUMIN HUMAN 25% 100 ML VIAL IV ONE (15:45)
[2024-03-25] MEDS: CEFTRIAXONE 1 G/50 ML PREMIX 50 ML IVPB SCH (18:09)
[2024-03-26] MEDS ORDERED: SODIUM CHLORIDE 250 ML IV PRN (07:43)
[2024-03-26] MEDS: SEVELAMER CARBONATE 0.8 GM POWDER PACKET PO SCH (08:59)
[2024-03-26] MEDS: EPOETIN ALFA-EPBX 10,000 UNIT/ML VIAL SQ ONE (12:01)
[2024-03-26 12:23] VITALS: BMI 26.4
[2024-03-26 16:45] LABS: BASO % 0.6 % (0-2.0); EOS % 2.7 % (0-4.5); HEMATOCRIT 23.2 % (32.4-45.2); HEMOGLOBIN 7.7 GM/dL (10.7-15.3); LYMPH % 10.9 % (8-40); MCHC 33.2 g/dl (32.0-36.0); MEAN CELL VOLUME 99.3 fl (80-96); MEAN PLT VOLUME 7.5 fl (7.5-11.1); MONO % 13.2 % (3.8-10.2); NEUT % 72.6 % (42.8-82.8); PLATELET COUNT 66 10^3/uL (134-434); RBC 2.34 M/mm3 (3.60-5.2); RDW 20.4 % (11.6-15.6)
[2024-03-26 17:01] LABS: POTASSIUM 3.5 mmol/L (3.5-5.1)
[2024-03-26 17:04] LABS: ALBUMIN 2.6 g/dl (3.4-5.0); BLOOD UREA NITROGEN 9.5 mg/dL (7-18); CALCIUM 8.3 mg/dL (8.5-10.1)
[2024-03-26 17:06] LABS: CREATININE 2.4 mg/dL (0.55-1.3)
[2024-03-26 17:09] LABS: BILIRUBIN,TOTAL 0.4 mg/dL (0.2-1); TOT PROT 5.6 g/dl (6.4-8.2)
[2024-03-26 17:20] LABS: WHITE BLOOD COUNT 1.9 K/mm3 (4.0-10.0)
[2024-03-26 18:00] LABS: MACROCYTOSIS 0
[2024-03-27 08:11] LABS: EOS % 5.5 % (0-4.5); HEMATOCRIT 24.1 % (32.4-45.2); HEMOGLOBIN 7.7 GM/dL (10.7-15.3); LYMPH % 12.2 % (8-40); MCH 32.7 pg (25.7-33.7); MCHC 32.2 g/dl (32.0-36.0); MEAN CELL VOLUME 101.8 fl (80-96); MONO % 10.3 % (3.8-10.2); PLATELET COUNT 68 10^3/uL (134-434); RBC 2.37 M/mm3 (3.60-5.2); RDW 20.5 % (11.6-15.6)
[2024-03-27 08:35] LABS: POTASSIUM 3.7 mmol/L (3.5-5.1)
[2024-03-27 08:44] LABS: ALBUMIN 2.4 g/dl (3.4-5.0)
[2024-03-27 08:46] LABS: CALCIUM 7.7 mg/dL (8.5-10.1)
[2024-03-27 08:48] LABS: BILIRUBIN,TOTAL 0.5 mg/dL (0.2-1); CREATININE 3.4 mg/dL (0.55-1.3); TOT PROT 5.2 g/dl (6.4-8.2)
[2024-03-27 09:21] LABS: ANISOCYTOSIS 1+; MACROCYTOSIS 1+
[2024-03-27 10:35] VITALS: RESP 18
[2024-03-27] MEDS ORDERED: SODIUM CHLORIDE 250 ML IV PRN (10:47)
[2024-03-27] MEDS ORDERED: EPOETIN ALFA-EPBX 10,000 UNIT/ML VIAL IVPUSH ONE (10:47)
[2024-03-27] MEDS ORDERED: FUROSEMIDE 20 MG TABLET (FP) PO SCH (12:00)
[2024-03-27] MEDS: SPIRONOLACTONE 25 MG TABLET PO ONE (13:12)
[2024-03-27 15:30] VITALS: BP 112/61; PULSE 66; TEMP 98.4
== END 2024-03-27 17:16 | DRG 432 ==
LOC: JER 02:47 → JERBED 06:13 → OBSVTOIN 08:30 → J7W 08:51
PROVIDERS: ADMIT Internal Medicine; ATTEND Nurse Practitioner Acute Care
PROC: 30233N1 Transfusion of Nonautologous Red Blood Cells into Peripheral Vein, Percutaneous Approach (ICD-10-PCS; 2024-03-24)
PROC: 0W9G3ZZ Drainage of Peritoneal Cavity, Percutaneous Approach (ICD-10-PCS; principal; 2024-03-25)
PROC: 5A1D70Z Performance of Urinary Filtration, Intermittent, Less than 6 Hours Per Day (ICD-10-PCS; 2024-03-26)
DX: K70.31 Alcoholic cirrhosis of liver with ascites (principal); I85.11 Secondary esophageal varices with bleeding; N18.6 End stage renal disease; K76.6 Portal hypertension; I12.0 Hypertensive chronic kidney disease with stage 5 chronic kidney disease or end stage renal disease; D61.818 Other pancytopenia; K55.9 Vascular disorder of intestine, unspecified; J44.9 Chronic obstructive pulmonary disease, unspecified; K76.82 Hepatic encephalopathy; E03.9 Hypothyroidism, unspecified; Z99.2 Dependence on renal dialysis; I12.9 Hypertensive chronic kidney disease with stage 1 through stage 4 chronic kidney disease, or unspecified chronic kidney disease; D63.8 Anemia in other chronic diseases classified elsewhere
CPT/HCPCS: 36415; 36430; 71045-TC-FY; 76705-TC; 76942-TC; 80053; 82105; 82746; 83735; 84100; 85025; 85027; 86850; 86900; 86901; 86922; 87040; 87086; 87186; 87340; 87635; 93005; 93010; 97116-GP; 97162-GP; 99285-25; G0378; J1644; P9038; P9058; Q5106

== ENCOUNTER 2024-04-08 07:12 | Inpatient (IN) | payer OTHER, MEDICARE ==
[2024-04-08 08:35] LABS: INR 1.24 (0.83-1.09); PROTHROMBIN TIME (PATIENT) 13.9 SEC (9.7-13.0)
[2024-04-08 08:37] LABS: BASO % 0.9 % (0-2.0); EOS % 3.2 % (0-4.5); LYMPH % 9.5 % (8-40); MCH 34.3 pg (25.7-33.7); MCHC 32.2 g/dl (32.0-36.0); MEAN CELL VOLUME 106.5 fl (80-96); MONO % 9.7 % (3.8-10.2); NEUT % 76.7 % (42.8-82.8); PLATELET COUNT 89 10^3/uL (134-434); RBC 1.79 M/mm3 (3.60-5.2); RDW 20.8 % (11.6-15.6); WHITE BLOOD COUNT 2.6 K/mm3 (4.0-10.0)
[2024-04-08 08:57] LABS: POTASSIUM 4.1 mmol/L (3.5-5.1)
[2024-04-08 08:59] LABS: ALBUMIN 2.7 g/dl (3.4-5.0); BLOOD UREA NITROGEN 18.4 mg/dL (7-18); CALCIUM 8.2 mg/dL (8.5-10.1)
[2024-04-08 09:00] LABS: HEMOGLOBIN 6.1 GM/dL (10.7-15.3)
[2024-04-08 09:04] LABS: BILIRUBIN,TOTAL 0.5 mg/dL (0.2-1); CREATININE 3.7 mg/dL (0.55-1.3); TOT PROT 5.9 g/dl (6.4-8.2)
[2024-04-08] MEDS ORDERED: DAPTOMYCIN 500 MG in SODIUM CHLORIDE 50 ML IVPB SCH (10:45)
[2024-04-08] MEDS ORDERED: PIPERACILLIN/TAZOB 4.5 GM 4.5 GM in DEXTROSE 5%-WATER 100 ML IVPB SCH (10:45)
[2024-04-08 11:17] LABS: ANISOCYTOSIS 2+; MACROCYTOSIS 1+
[2024-04-08] MEDS: LACTULOSE 20 GM/30 ML UDC (FOR ORAL USE ONLY) PO SCH (19:35)
[2024-04-08] MEDS: PANTOPRAZOLE 40 MG TABLET PO SCH (19:35)
[2024-04-08] MEDS: PRAMIPEXOLE DIHYDROCHLORIDE 1 MG TABLET PO SCH (22:28)
[2024-04-09] MEDS: LEVOTHYROXINE NA 100 MCG TABLET (FP) PO SCH (06:57)
[2024-04-09 10:21] LABS: HEMATOCRIT 22.6 % (32.4-45.2); HEMOGLOBIN 7.4 GM/dL (10.7-15.3); MCH 32.7 pg (25.7-33.7); MCHC 32.7 g/dl (32.0-36.0); MEAN PLT VOLUME 7.8 fl (7.5-11.1); PLATELET COUNT 90 10^3/uL (134-434); RBC 2.26 M/mm3 (3.60-5.2); RDW 24.6 % (11.6-15.6)
[2024-04-09 12:02] LABS: ALBUMIN 2.5 g/dl (3.4-5.0); BLOOD UREA NITROGEN 33.5 mg/dL (7-18); CALCIUM 7.6 mg/dL (8.5-10.1); MAGNESIUM 2.5 mg/dL (1.8-2.4)
[2024-04-09 12:05] LABS: CREATININE 4.3 mg/dL (0.55-1.3)
[2024-04-09 12:06] LABS: PHOSPHOROUS 3.9 mg/dL (2.5-4.9)
[2024-04-09 12:07] LABS: BILIRUBIN,TOTAL 0.7 mg/dL (0.2-1); TOT PROT 5.5 g/dl (6.4-8.2)
[2024-04-09] MEDS: CITALOPRAM HYDROBROMIDE 20 MG TABLET PO SCH (12:18)
[2024-04-09] MEDS: THIAMINE 100 MG TABLET PO SCH (12:19)
[2024-04-09] MEDS: FOLIC ACID 1 MG TABLET (FP) PO SCH (12:19)
[2024-04-09] MEDS ORDERED: SODIUM CHLORIDE 250 ML IV PRN (17:41)
[2024-04-09] MEDS: EPOETIN ALFA-EPBX 10,000 UNIT/ML VIAL IVPUSH ONE (20:36)
[2024-04-10 08:43] LABS: BASO % 0.9 % (0-2.0); EOS % 3.7 % (0-4.5); HEMATOCRIT 20.4 % (32.4-45.2); LYMPH % 11.5 % (8-40); MCH 33.4 pg (25.7-33.7); MEAN CELL VOLUME 98.4 fl (80-96); MEAN PLT VOLUME 7.6 fl (7.5-11.1); NEUT % 71.9 % (42.8-82.8); PLATELET COUNT 81 10^3/uL (134-434); RBC 2.08 M/mm3 (3.60-5.2); RDW 23.5 % (11.6-15.6); WHITE BLOOD COUNT 2.5 K/mm3 (4.0-10.0)
[2024-04-10 09:16] LABS: HEMOGLOBIN 6.9 GM/dL (10.7-15.3)
[2024-04-10 09:21] LABS: POTASSIUM 3.8 mmol/L (3.5-5.1)
[2024-04-10 09:25] LABS: CALCIUM 7.6 mg/dL (8.5-10.1)
[2024-04-10 09:27] LABS: ALBUMIN 2.2 g/dl (3.4-5.0); BLOOD UREA NITROGEN 16.6 mg/dL (7-18); MAGNESIUM 2.2 mg/dL (1.8-2.4)
[2024-04-10 09:30] LABS: CREATININE 2.8 mg/dL (0.55-1.3)
[2024-04-10 09:31] LABS: BILIRUBIN,TOTAL 0.5 mg/dL (0.2-1); TOT PROT 4.9 g/dl (6.4-8.2)
[2024-04-10] MEDS: OCTREOTIDE ACETATE 100 MCG/1 ML SQ SCH (14:40)
[2024-04-10] MEDS: RIFAXIMIN 550 MG TABLET PO SCH (22:51)
[2024-04-11 09:19] LABS: HEMATOCRIT 23.8 % (32.4-45.2); HEMOGLOBIN 7.8 GM/dL (10.7-15.3); MCH 32.2 pg (25.7-33.7); MCHC 32.8 g/dl (32.0-36.0); MEAN CELL VOLUME 98.2 fl (80-96); MEAN PLT VOLUME 7.8 fl (7.5-11.1); PLATELET COUNT 91 10^3/uL (134-434); RBC 2.43 M/mm3 (3.60-5.2); WHITE BLOOD COUNT 2.7 K/mm3 (4.0-10.0)
[2024-04-11 09:38] LABS: POTASSIUM 4.8 mmol/L (3.5-5.1)
[2024-04-11 09:42] LABS: ALBUMIN 2.4 g/dl (3.4-5.0); BLOOD UREA NITROGEN 24.1 mg/dL (7-18); CALCIUM 7.7 mg/dL (8.5-10.1); MAGNESIUM 2.2 mg/dL (1.8-2.4)
[2024-04-11 09:45] LABS: CREATININE 4.2 mg/dL (0.55-1.3)
[2024-04-11 09:47] LABS: BILIRUBIN,TOTAL 0.6 mg/dL (0.2-1); TOT PROT 5.3 g/dl (6.4-8.2)
[2024-04-11] MEDS ORDERED: SODIUM CHLORIDE 250 ML IV PRN (09:54)
[2024-04-11] MEDS: EPOETIN ALFA-EPBX 20,000 UNIT/2 ML MDV IVPUSH ONE (10:24)
[2024-04-11 11:07] LABS: ANISOCYTOSIS 2+; MACROCYTOSIS 0
[2024-04-12 09:11] LABS: BASO % 1.3 % (0-2.0); EOS % 3.9 % (0-4.5); HEMATOCRIT 24.5 % (32.4-45.2); LYMPH % 11.5 % (8-40); MCH 32.6 pg (25.7-33.7); MCHC 32.5 g/dl (32.0-36.0); MEAN CELL VOLUME 100.3 fl (80-96); MEAN PLT VOLUME 7.4 fl (7.5-11.1); MONO % 8.6 % (3.8-10.2); NEUT % 74.7 % (42.8-82.8); PLATELET COUNT 93 10^3/uL (134-434); RBC 2.44 M/mm3 (3.60-5.2); RDW 22.7 % (11.6-15.6); WHITE BLOOD COUNT 2.8 K/mm3 (4.0-10.0)
[2024-04-12 09:24] LABS: INR 1.18 (0.83-1.09); PROTHROMBIN TIME (PATIENT) 13.3 SEC (9.7-13.0)
[2024-04-12 09:26] LABS: POTASSIUM 4.3 mmol/L (3.5-5.1)
[2024-04-12 09:30] LABS: ALBUMIN 2.5 g/dl (3.4-5.0); BLOOD UREA NITROGEN 15.3 mg/dL (7-18)
[2024-04-12 09:31] LABS: CALCIUM 7.3 mg/dL (8.5-10.1)
[2024-04-12 09:33] LABS: CREATININE 3.5 mg/dL (0.55-1.3)
[2024-04-12 09:35] LABS: BILIRUBIN,TOTAL 0.6 mg/dL (0.2-1); TOT PROT 5.6 g/dl (6.4-8.2)
[2024-04-13 08:42] LABS: HEMATOCRIT 21.5 % (32.4-45.2); HEMOGLOBIN 7.1 GM/dL (10.7-15.3); MCH 32.7 pg (25.7-33.7); MCHC 32.9 g/dl (32.0-36.0); MEAN CELL VOLUME 99.5 fl (80-96); MEAN PLT VOLUME 7.4 fl (7.5-11.1); PLATELET COUNT 79 10^3/uL (134-434); RBC 2.16 M/mm3 (3.60-5.2); RDW 22.2 % (11.6-15.6); WHITE BLOOD COUNT 2.5 K/mm3 (4.0-10.0)
[2024-04-13 09:11] LABS: CALCIUM 7.6 mg/dL (8.5-10.1)
[2024-04-13 09:12] LABS: ALBUMIN 2.3 g/dl (3.4-5.0); BLOOD UREA NITROGEN 23.8 mg/dL (7-18)
[2024-04-13 09:14] LABS: CREATININE 4.6 mg/dL (0.55-1.3)
[2024-04-13 09:16] LABS: BILIRUBIN,TOTAL 0.6 mg/dL (0.2-1)
[2024-04-13 10:27] VITALS: BMI 29.2
[2024-04-13 19:49] VITALS: RESP 18
[2024-04-14] MEDS: TRIMETHOBENZAMIDE HCL 200MG/2ML INJ IM ONE (06:27)
[2024-04-14] MEDS ORDERED: SODIUM CHLORIDE 250 ML IV PRN (09:00)
[2024-04-14 09:30] LABS: BASO % 0.6 % (0-2.0); HEMOGLOBIN 7.8 GM/dL (10.7-15.3); LYMPH % 8.4 % (8-40); MCH 32.9 pg (25.7-33.7); MCHC 32.5 g/dl (32.0-36.0); MEAN CELL VOLUME 101.1 fl (80-96); MEAN PLT VOLUME 7.4 fl (7.5-11.1); MONO % 7.7 % (3.8-10.2); NEUT % 80.3 % (42.8-82.8); PLATELET COUNT 97 10^3/uL (134-434); RBC 2.38 M/mm3 (3.60-5.2); RDW 21.9 % (11.6-15.6); WHITE BLOOD COUNT 3.9 K/mm3 (4.0-10.0)
[2024-04-14] MEDS: EPOETIN ALFA-EPBX 10,000 UNIT/ML VIAL IVPUSH ONE (09:40)
[2024-04-14 09:59] LABS: CREATININE 5.3 mg/dL (0.55-1.3)
[2024-04-14 10:00] LABS: BILIRUBIN,TOTAL 0.6 mg/dL (0.2-1)
[2024-04-14 10:01] LABS: TOT PROT 5.5 g/dl (6.4-8.2)
[2024-04-14 10:02] LABS: ALBUMIN 2.6 g/dl (3.4-5.0)
[2024-04-14 10:03] LABS: BLOOD UREA NITROGEN 36.2 mg/dL (7-18)
[2024-04-14 10:04] LABS: CALCIUM 7.6 mg/dL (8.5-10.1)
[2024-04-14 10:47] LABS: ANISOCYTOSIS 2+; MACROCYTOSIS 1+
[2024-04-15 08:54] LABS: BASO % 0.9 % (0-2.0); EOS % 4.2 % (0-4.5); HEMATOCRIT 21.4 % (32.4-45.2); HEMOGLOBIN 7.2 GM/dL (10.7-15.3); LYMPH % 15.8 % (8-40); MCH 33.8 pg (25.7-33.7); MCHC 33.6 g/dl (32.0-36.0); MEAN CELL VOLUME 100.6 fl (80-96); MEAN PLT VOLUME 7.3 fl (7.5-11.1); MONO % 9.4 % (3.8-10.2); NEUT % 69.7 % (42.8-82.8); PLATELET COUNT 76 10^3/uL (134-434); RBC 2.12 M/mm3 (3.60-5.2); RDW 21.9 % (11.6-15.6); WHITE BLOOD COUNT 2.3 K/mm3 (4.0-10.0)
[2024-04-15 09:47] LABS: POTASSIUM 3.7 mmol/L (3.5-5.1)
[2024-04-15] MEDS ORDERED: SODIUM CHLORIDE 250 ML IV PRN (09:58)
[2024-04-15 10:08] LABS: ALBUMIN 2.4 g/dl (3.4-5.0)
[2024-04-15 10:09] LABS: BLOOD UREA NITROGEN 22.3 mg/dL (7-18)
[2024-04-15 10:11] LABS: CALCIUM 7.7 mg/dL (8.5-10.1)
[2024-04-15 10:13] LABS: BILIRUBIN,TOTAL 0.5 mg/dL (0.2-1); TOT PROT 5.1 g/dl (6.4-8.2)
[2024-04-15 10:14] LABS: CREATININE 4.2 mg/dL (0.55-1.3)
[2024-04-16 06:59] VITALS: PULSE 62
[2024-04-16 08:41] LABS: BASO % 1.1 % (0-2.0); HEMATOCRIT 25.3 % (32.4-45.2); HEMOGLOBIN 8.4 GM/dL (10.7-15.3); LYMPH % 14.4 % (8-40); MCH 32.8 pg (25.7-33.7); MEAN CELL VOLUME 99.5 fl (80-96); MEAN PLT VOLUME 7.7 fl (7.5-11.1); MONO % 7.1 % (3.8-10.2); NEUT % 72.4 % (42.8-82.8); PLATELET COUNT 83 10^3/uL (134-434); RBC 2.54 M/mm3 (3.60-5.2); RDW 21.6 % (11.6-15.6); WHITE BLOOD COUNT 2.9 K/mm3 (4.0-10.0)
[2024-04-16 08:53] LABS: POTASSIUM 3.5 mmol/L (3.5-5.1)
[2024-04-16 08:59] LABS: CALCIUM 7.8 mg/dL (8.5-10.1)
[2024-04-16 09:00] LABS: ALBUMIN 2.5 g/dl (3.4-5.0); BLOOD UREA NITROGEN 16.4 mg/dL (7-18)
[2024-04-16 09:03] LABS: CREATININE 3.6 mg/dL (0.55-1.3)
[2024-04-16 09:04] LABS: BILIRUBIN,TOTAL 0.8 mg/dL (0.2-1)
[2024-04-16 09:05] LABS: TOT PROT 5.5 g/dl (6.4-8.2)
[2024-04-16 10:14] VITALS: BP 118/37; TEMP 97.9
== END 2024-04-16 10:30 | disposition home or self-care (01) | DRG 811 ==
LOC: JER 07:12 → JERBED 10:40 → J8W 17:41
PROVIDERS: ADMIT Internal Medicine; ATTEND Nurse Practitioner Family
PROC: 30233N1 Transfusion of Nonautologous Red Blood Cells into Peripheral Vein, Percutaneous Approach (ICD-10-PCS; principal; 2024-04-08)
PROC: 0W9G3ZZ Drainage of Peritoneal Cavity, Percutaneous Approach (ICD-10-PCS; 2024-04-08)
PROC: BW40ZZZ Ultrasonography of Abdomen (ICD-10-PCS; 2024-04-08)
PROC: 0W3P8ZZ Control Bleeding in Gastrointestinal Tract, Via Natural or Artificial Opening Endoscopic (ICD-10-PCS; 2024-04-13)
PROC: 5A1D70Z Performance of Urinary Filtration, Intermittent, Less than 6 Hours Per Day (ICD-10-PCS; 2024-04-15)
DX: D53.9 Nutritional anemia, unspecified (principal); N18.6 End stage renal disease; D61.818 Other pancytopenia; K76.6 Portal hypertension; D63.1 Anemia in chronic kidney disease; K70.31 Alcoholic cirrhosis of liver with ascites; J44.9 Chronic obstructive pulmonary disease, unspecified; E03.9 Hypothyroidism, unspecified; H11.31 Conjunctival hemorrhage, right eye; K31.89 Other diseases of stomach and duodenum
CPT/HCPCS: 36415; 36430; 71045-TC-FY; 76942-TC; 80053; 82272; 82728; 82962; 83735; 84100; 85025; 85027; 85610; 86704; 86709; 86803; 86850; 86900; 86901; 86922; 87340; 87517; 93005; 93010; 97116-GP; 97161-GP; 99285-25; P9038; P9058; Q5106